=== PATIENT | female | born 1990 | race American Indian/Alaskan Native ===

== ENCOUNTER 2016-11-29 17:33 | Emergency (ER) | payer OTHER ==
[~2016-11-29] VITALS: Ht 162.6 cm; Wt 73.5 kg
[~2016-11-29 17:33] MED LIST: MAPAP500 MG PO; PRENATAL VITAM1 EAC7 PO; REGLAN10 MG PO; SLEEP AID25 M1 PO; THERAFLU COLD-1 EAC1 PO
[2016-11-29] MEDS ORDERED: PROMETHAZINE HC25 M1 PO (17:52)
[2016-11-29] MEDS ORDERED: CELEXA20 MG PO (17:53)
== END 2016-11-29 18:28 | disposition home or self-care (01) ==
LOC: ED 17:33
DX: O99.89 Other specified diseases and conditions complicating pregnancy, childbirth and the puerperium (principal); M25.562 Pain in left knee; M25.561 Pain in right knee; Z87.891 Personal history of nicotine dependence; Z90.89 Acquired absence of other organs; Z88.8 Allergy status to other drugs, medicaments and biological substances; Z79.899 Other long term (current) drug therapy; Z3A.15 15 weeks gestation of pregnancy; W01.0XXA Fall on same level from slipping, tripping and stumbling without subsequent striking against object, initial encounter
CPT/HCPCS: 81001; 99283

== ENCOUNTER 2017-04-29 00:58 | Inpatient (IN) | payer OTHER ==
[~2017-04-29] VITALS: Ht 160 cm; Wt 85.0 kg
[~2017-04-29 00:58] MED LIST changes: +CELEXA20 MG PO; +PROMETHAZINE HC25 M1 PO
--- NOTE | 2017-04-29 13:42 | PR ---
[facility] [address] [facility] [place], [place] [address] Signed Progress Notes IP Datetime Report Generated by CPN: 04/29/2017 13:41 PROGRESS NOTES: [id number] Impression: Slow Progression of Labor Procedures: Intrauterine Pressure Catheter; Scalp Electrode Plan: Augmentation; Anticipate Vaginal Delivery VITAL SIGNS: [id number] Vital Signs: Reviewed; Within Normal Limits VS Notable Details: AMnisure Positive EXAM: [id number] Dilatation: 3.0 Effacement: 80 Station: -3 Uterine Contractions: every 7-10 minutes MEMBRANES: [id number] Membrane Status: Ruptured Amniotic Fluid Color: Clear Comments: Comfortable with Epidural. Contractions spacing out; will start Pitocin augmentation Fetus A: [id number] FHR Baseline: 120 Variability: Moderate 6-25bpm Accelerations: 15X15 Presentation: Vertex Fetus B: [id number] Signing Physician: Michelle Galicia MD CC: *Electronically Signed* 04/29/17 1341 MICHELLE GALICIA MD PATIENT NAME: CHIKI IRELAND PROGRESS NOTE DATE OF : 88 PHYSICIAN: MICHELLE GALICIA MD RPT #: [id number] REPORT IS CONFIDENTIAL AND NOT TO BE RELEASED WITHOUT AUTHORIZATION
--- NOTE | 2017-04-30 10:59 | PR ---
[facility] [address] [facility] [place] [address] Signed PP Progress Notes Datetime Report Generated by CPN: 04/30/2017 10:58 SUBJECTIVE: [id number] Pain: Within normal limits Nausea/Vomiting: Denies Vital Signs: [id number] Vital Signs: Reviewed; Within Normal Limits Notable Details: PP Hgb/Hct = 10.0/29.4 EXAM: [id number] Abdomen/Uterus: Normal Lochia: Normal Extremities: Normal IMPRESSION/PLAN/PROCEDURES: [id number] Impression: Normal progression Plan: Continue present management Procedures: None Progress Notes: Doing well, without complaint. Signing Physician: Michelle Galicia MD CC: *Electronically Signed* 04/30/17 1058 MICHELLE GALICIA MD PATIENT NAME: CHIKI IRELAND PROGRESS NOTE DATE OF : 88 PHYSICIAN: MICHELLE GALICIA MD RPT #: [id number] REPORT IS CONFIDENTIAL AND NOT TO BE RELEASED WITHOUT AUTHORIZATION
--- NOTE | 2017-05-01 09:15 | PR ---
[facility] [address] [facility] [place] [address] Signed PP Progress Notes Datetime Report Generated by CPN: 05/01/2017 09:15 SUBJECTIVE: [id number] Pain: Within normal limits Nausea/Vomiting: Denies Vital Signs: [id number] Vital Signs: Reviewed; Within Normal Limits Notable Details: PP Hgb/Hct = 10.0/29.4 EXAM: [id number] Abdomen/Uterus: Normal Lochia: Normal Extremities: Normal IMPRESSION/PLAN/PROCEDURES: [id number] Impression: Normal progression Plan: Discharge Procedures: None Progress Notes: Doing well, wants to go home. Signing Physician: Michelle Galicia MD CC: *Electronically Signed* 05/01/17 0915 MICHELLE GALICIA MD PATIENT NAME: CHIKI IRELAND PROGRESS NOTE DATE OF : 88 PHYSICIAN: MICHELLE GALICIA MD RPT #: [id number] REPORT IS CONFIDENTIAL AND NOT TO BE RELEASED WITHOUT AUTHORIZATION
== END 2017-05-01 10:50 | disposition home or self-care (01) | DRG 775 ==
LOC: FBCO 00:58 → FBC 01:04 → MS 19:00 → FBC 19:00
PROVIDERS: ADMIT Obstetrics & Gynecology
PROC: 10E0XZZ Delivery of Products of Conception, External Approach (ICD-10-PCS; principal; 2017-04-29)
PROC: 10907ZC Drainage of Amniotic Fluid, Therapeutic from Products of Conception, Via Natural or Artificial Opening (ICD-10-PCS; principal; 2017-04-29)
PROC: 00HU33Z Insertion of Infusion Device into Spinal Canal, Percutaneous Approach (ICD-10-PCS; 2017-04-29)
PROC: 3E0R3BZ Introduction of Anesthetic Agent into Spinal Canal, Percutaneous Approach (ICD-10-PCS; 2017-04-29)
DX: O99.824 Streptococcus B carrier state complicating childbirth (principal); Z3A.37 37 weeks gestation of pregnancy; Z37.0 Single live birth; O69.81X0 Labor and delivery complicated by cord around neck, without compression, not applicable or unspecified
CPT/HCPCS: 01960; 36415; 84112; 85027; J2540; J2590; J3010; J7120

== ENCOUNTER 2017-12-02 21:07 | Emergency (ER) | payer OTHER ==
[~2017-12-02] VITALS: Ht 160 cm; Wt 77.1 kg
== END 2017-12-02 23:59 | disposition home or self-care (01) ==
LOC: ED 21:07
DX: S39.012A Strain of muscle, fascia and tendon of lower back, initial encounter (principal); S29.012A Strain of muscle and tendon of back wall of thorax, initial encounter; G80.9 Cerebral palsy, unspecified; X58.XXXA Exposure to other specified factors, initial encounter; F17.200 Nicotine dependence, unspecified, uncomplicated; Z88.8 Allergy status to other drugs, medicaments and biological substances; Z79.899 Other long term (current) drug therapy
CPT/HCPCS: 36415; 80053; 81001; 84703; 85025; 96372; 99283; J1170

== ENCOUNTER 2018-01-23 15:03 | Emergency (ER) | payer OTHER ==
[~2018-01-23] VITALS: Ht 160 cm; Wt 77.1 kg
[2018-01-23] MEDS ORDERED: ROBAXIN-750750 MG PO (15:13)
== END 2018-01-23 15:18 | disposition home or self-care (01) ==
LOC: ED 15:03
DX: M25.562 Pain in left knee (principal); W19.XXXA Unspecified fall, initial encounter; Y93.01 Activity, walking, marching and hiking

== ENCOUNTER 2019-05-28 12:35 | Emergency (ER) | payer OTHER ==
[~2019-05-28] VITALS: Ht 160 cm; Wt 77.1 kg
[~2019-05-28 12:35] MED LIST changes: +ROBAXIN-750750 MG PO
[2019-05-28] MEDS ORDERED: NORCO 7.5-3251 EACH PO (13:44)
== END 2019-05-28 13:59 | disposition home or self-care (01) ==
LOC: ED 12:35
DX: S83.92XA Sprain of unspecified site of left knee, initial encounter (principal); X50.9XXA Other and unspecified overexertion or strenuous movements or postures, initial encounter; F41.9 Anxiety disorder, unspecified; F17.200 Nicotine dependence, unspecified, uncomplicated; Z88.8 Allergy status to other drugs, medicaments and biological substances; Z79.899 Other long term (current) drug therapy
CPT/HCPCS: 73560; 99283-25; A9270

== ENCOUNTER 2021-01-17 21:02 | Emergency (ER) | payer OTHER ==
[~2021-01-17] VITALS: Ht 160 cm; Wt 77.1 kg
[~2021-01-17 21:02] MED LIST changes: +NORCO 7.5-3251 EACH PO
== END 2021-01-17 22:55 | disposition home or self-care (01) ==
LOC: ED 21:02
DX: S60.221A Contusion of right hand, initial encounter (principal); S00.83XA Contusion of other part of head, initial encounter; S80.11XA Contusion of right lower leg, initial encounter; F17.200 Nicotine dependence, unspecified, uncomplicated; Z88.6 Allergy status to analgesic agent; Z88.8 Allergy status to other drugs, medicaments and biological substances; Y04.0XXA Assault by unarmed brawl or fight, initial encounter
CPT/HCPCS: 73130; 99283-25

== ENCOUNTER 2022-10-28 21:53 | Emergency (ER) | payer OTHER ==
[~2022-10-28] VITALS: Ht 160 cm; Wt 66.0 kg
[2022-10-28] MEDS ORDERED: BUPROPION XL300 MG PO (22:09)
[2022-10-28] MEDS ORDERED: METHOCARBAMOL500 MG PO (22:10)
[2022-10-28] MEDS ORDERED: NEURONTIN300 MG PO (22:11)
[2022-10-28] MEDS ORDERED: OMEPRAZOLE20 MG PO (23:48)
[2022-10-29 00:34] VITALS: BP 133/69
== END 2022-10-29 00:35 | disposition home or self-care (01) ==
LOC: ED 21:53
DX: K29.80 Duodenitis without bleeding (principal); E86.0 Dehydration; G43.909 Migraine, unspecified, not intractable, without status migrainosus; F17.200 Nicotine dependence, unspecified, uncomplicated; Z88.8 Allergy status to other drugs, medicaments and biological substances; Z79.899 Other long term (current) drug therapy
CPT/HCPCS: 36415; 74177; 80053; 81001; 83690; 84703; 85025; 96361; 96375; 99284 25; C9113; G0480; J0780; J1200; J1885; J3010; J7121; Q9967